=== PATIENT | female | born 1995 | race Two or more races ===

== ENCOUNTER 2025-07-01 08:13 | Emergency (ER) | payer OTHER ==
[~2025-07-01] VITALS: Ht 157.5 cm; Wt 66.7 kg
[2025-07-01] MEDS ORDERED: LOPERAMIDE HCL 2 MG CAPSULE PO ONE ×2 (10:15→10:28)
[2025-07-01] MEDS ORDERED: 0.9 % SODIUM CHLORIDE 1,000 ML IV ONE (10:15)
[2025-07-01 11:07] LABS: BASO % 0.8 % (0.1-1.2); EOS # 0.23 (0.04-0.54); EOS % 3.8 % (0.7-7.0); LYMPH # 2.13 (1.18-3.74); LYMPH % 35.5 % (19.3-53.1); MEAN PLATELET VOLUME 9.80 fl (9.4-12.4); MONO # 0.68 (0.24-0.82); MONO % 11.3 % (4.7-12.5); NEUT # 2.90 (1.56-6.13); NEUT % 48.4 % (34.0-71.1); RED CELL DISTRIBUTION WIDTH 11.9 % (11.6-14.4)
[2025-07-01 11:34] LABS: BUN CREA RATIO 14.0 (7.0-25.0); CREATININE SERUM 0.66 mg/dL (0.55-1.02); GFR 105.88; GLUCOSE FASTING 101.0 mg/dL (65-100); OSMOLALITY SERUM 278.0 MOSM/KG (275-295)
== END 2025-07-01 14:10 | disposition home or self-care (01) ==
LOC: ER 08:13
PROVIDERS: Emergency Medicine
DX: R19.7 Diarrhea, unspecified (principal)